=== PATIENT | male | born 1980 | race Caucasian/White ===

== ENCOUNTER 2017-12-13 12:15 | Emergency (ER) | END 2017-12-13 13:07 | disposition home or self-care (01) ==

== ENCOUNTER 2018-02-06 14:16 | Emergency (ER) | END 2018-02-06 17:26 | disposition home or self-care (01) ==

== ENCOUNTER 2019-03-25 22:51 | Inpatient (IN) | payer OTHER ==
[~2019-03-25] VITALS: Ht 167.6 cm; Wt 65.9 kg
[~2019-03-25 22:51] MED LIST: ACET325T33 PO; CEPH500C PO; FAMO-96 PO; IBUP-1542 PO; NO MEDS
[2019-03-25] MEDS ORDERED: DIPHTH/TET/ACEL PERTUSS (ADULT) 0.5 ML VIAL IM* ONE (23:30)
[2019-03-25] MEDS ORDERED: CEFAZOLIN 1 GM/50 ML (PMX) 50 ML IVPB SCH (23:30)
[2019-03-25] MEDS ORDERED: LIDOCAINE 1% (MDV) 20 ML INJ SC ONE (23:30)
[2019-03-25] MEDS ORDERED: ONDANSETRON 4 MG INJ IV STA (23:54)
[2019-03-25] MEDS ORDERED: morphine 4 MG/ML VIAL IV STA (23:54)
[2019-03-26] MEDS ORDERED: LACTATED RINGER'S 1,000 ML IV STA (00:20)
[2019-03-26] MEDS ORDERED: LORAZEPAM 2 MG INJ IV ONE (00:30)
[2019-03-26] MEDS: DEXTROSE 5%-0.45% NACL 1,000 ML IV SCH ×3 (04:07→18:02)
[2019-03-26] MEDS ORDERED: ONDANSETRON 4 MG INJ IV PRN (04:30)
[2019-03-26] MEDS ORDERED: NACL 0.9% 3 ML SYG IV SCH (04:30)
[2019-03-26] MEDS ORDERED: ALBUTEROL/IPRATROPIUM (NEB) 3 ML AMP HHN PRN (04:30)
[2019-03-26] MEDS: MULTIVITAMINS 10 ML, THIAMINE 100 MG, FOLIC ACID 1 MG in SOD CHLORIDE 0.9% 1,000 ML IVPB SCH (09:05)
[2019-03-26 11:40] VITALS: BP 124/78; PULSE 84; RESP 20
[2019-03-26 11:44] VITALS: Ht 167.6 cm; Wt 65.9 kg
[2019-03-26] MEDS ORDERED: ACETAMINOPHEN 325 MG TAB PO PRN (13:00)
[2019-03-26] MEDS: HYDROCODONE/APAP (5/325) TAB PO PRN ×2 (13:01→17:05)
[2019-03-26 15:57] VITALS: BP 111/62; PULSE 85; RESP 20
[2019-03-26 19:00] VITALS: BP 116/73; PULSE 98; RESP 19
[2019-03-26 23:13] VITALS: BP 119/70; PULSE 91; RESP 18
[2019-03-26 23:31] VITALS: BP 116/73; PULSE 72; RESP 18
[2019-03-27] MEDS: HYDROCODONE/APAP (5/325) TAB PO PRN ×4 (00:23→21:10)
[2019-03-27 07:37] VITALS: BP 136/68; PULSE 67; RESP 20
[2019-03-27] MEDS: MULTIVITAMINS 10 ML, THIAMINE 100 MG, FOLIC ACID 1 MG in SOD CHLORIDE 0.9% 1,000 ML IVPB SCH (08:19)
[2019-03-27 10:59] VITALS: BP 128/64; PULSE 70; RESP 20
[2019-03-27 15:35] VITALS: BP 110/69; PULSE 72; RESP 20
[2019-03-27 21:03] VITALS: BP 120/71; PULSE 72; RESP 18
[2019-03-28] VITALS: BP 122/75; PULSE 75; RESP 20
[2019-03-28 04:00] VITALS: BP 119/68; PULSE 68; RESP 18
[2019-03-28] MEDS: HYDROCODONE/APAP (5/325) TAB PO PRN ×2 (06:42→11:58)
[2019-03-28 07:37] VITALS: BP 116/72; PULSE 74; RESP 20
[2019-03-28] MEDS: MULTIVITAMINS 10 ML, THIAMINE 100 MG, FOLIC ACID 1 MG in SOD CHLORIDE 0.9% 1,000 ML IVPB SCH (09:36)
[2019-03-28 11:07] VITALS: BP 119/70; PULSE 74; RESP 20
[2019-03-28] MEDS ORDERED: CEPHALEXIN 500 MG CAP PO SCH (14:30)
== END 2019-03-28 17:54 | disposition home or self-care (01) | DRG 57 ==
LOC: E/R 22:51 → 6WM 03-26 01:42 → EDBEDREQ 03-26 10:50
PROVIDERS: ADMIT Internal Medicine; ATTEND Internal Medicine
DX: G31.84 Mild cognitive impairment of uncertain or unknown etiology (principal); K76.0 Fatty (change of) liver, not elsewhere classified; Z72.89 Other problems related to lifestyle; D72.829 Elevated white blood cell count, unspecified; F17.200 Nicotine dependence, unspecified, uncomplicated; F41.9 Anxiety disorder, unspecified; E78.5 Hyperlipidemia, unspecified; S01.01XA Laceration without foreign body of scalp, initial encounter; Y09 Assault by unspecified means; Y93.89 Activity, other specified; S09.90XA Unspecified injury of head, initial encounter; F15.10 Other stimulant abuse, uncomplicated
CPT/HCPCS: 36415; 70450; 71250; 72125; 80048; 80053; 80061; 80307; 81001; 83036; 83690; 83735; 84100; 84443; 84484; 85025; 85610; 85730; 90471; 90715; 93005; 96365; 96375; J0690; J2060; J2405; J3411; J7030; J7042; J7120